=== PATIENT | female | born 2000 | race Two or more races ===

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

== ENCOUNTER 2018-07-11 16:11 | Emergency (ER) | payer OTHER ==
[~2018-07-11] VITALS: Ht 149.9 cm; Wt 67.2 kg
[2018-07-11 16:58] LABS: BILIRUBIN,URINE SMALL (NEG); CLARITY,URINE CLEAR; COLOR,URINE YELLOW; NITRITE,URINE NEGATIVE (NEG); PH,URINE 5.5; PROTEIN,URINE NEGATIVE (NEG-TRACE); UROBILINOGEN,URINE 0.2 mg/dL (0.2 mg/dL)
[2018-07-11 17:05] LABS: SQUAMOUS EPITHELIAL CELL,UR MANY /LPF
[2018-07-11 17:07] LABS: BACTERIA,URINE 0 /HPF (0-FEW)
[2018-07-11 17:27] LABS: BASO % 0 % (0-3); EOS # 0.1 x10^3/uL (0.0-0.7); EOS % 1 % (0-3); HEMATOCRIT 37.1 % (36.0-47.0); HEMOGLOBIN 12.3 g/dL (12.0-15.5); LYMPH # 2.1 x10^3/uL (1.0-4.8); LYMPH % 26 % (24-48); MEAN CORPUSCULAR HEMOGLOBIN 27 pg (25-35); MEAN CORPUSCULAR HGB CONC 33 g/dL (31-37); MEAN CORPUSCULAR VOLUME 80 fL (79-100); MONO # 0.5 x10^3/uL (0.0-1.1); MONO % 6 % (0-9); NEUT # 5.5 x10^3uL (1.8-7.7); NEUT % 67 % (31-73); PLATELET COUNT 361 x10^3/uL (140-400); RED BLOOD COUNT 4.63 x10^6/uL (3.50-5.40); RED CELL DISTRIBUTION WIDTH 12.8 % (11.5-14.5); WHITE BLOOD COUNT 8.2 x10^3/uL (4.0-11.0)
[2018-07-11 17:42] LABS: CALCIUM 9.3 mg/dL (8.5-10.1); CREATININE 0.7 mg/dL (0.6-1.0); GFR 107.8; POTASSIUM 3.6 mmol/L (3.5-5.1)
[2018-07-11 17:47] LABS: ALBUMIN 4.1 g/dL (3.4-5.0); ALBUMIN/GLOBULIN RATIO 1.1 (1.0-1.7); TOTAL BILIRUBIN 0.8 mg/dL (0.2-1.0)
--- NOTE | 2018-07-11 17:56 | PHYS DOC ---
Past Medical History Past Medical History: Other Additional Past Medical Histor: OVARIAN CYSTS (TAVON LOPEZ APRN) Past Surgical History: No Surgical History (TAVON LOPEZ APRN) Alcohol Use: Occasionally Drug Use: None (TAVON LOPEZ APRN) Adult General Chief Complaint Chief Complaint: VAGINAL BLEEDING HPI HPI Patient is a 17 year old female with history of ovarian cyst who presented to the ED today complaining of vaginal bleeding that began yesterday. Patient states she's not had a menstrual cycle for the last 2 years. She is not on any control. She states she's been checked out by the UPSET OPERATOR and was told her periods are irregular. Denies any chance she is . She is complaining of mild abdominal cramping. Patient denies anything exacerbating or relieving abdominal cramping. (TAVON LOPEZ APRN) Review of Systems Review of Systems You Constitutional: Denies fever or chills [] Eyes: Denies change in visual acuity, redness, or eye pain [] HENT: Denies nasal congestion or sore throat [] Respiratory: Denies cough or shortness of breath [] Cardiovascular: No additional information not addressed in HPI [] GI: Reports abdominal cramping. Denies abdominal pain, nausea, vomiting, bloody stools or diarrhea [] : Reports vaginal bleeding. Denies dysuria or hematuria [] Musculoskeletal: Denies back pain or joint pain [] Integument: Denies rash or skin lesions [] Neurologic: Denies headache, focal weakness or sensory changes [] All other systems were reviewed and found to be within normal limits, except as documented in this note. (TAVON LOPEZ APRN) Physical Exam Physical Exam Constitutional: Well developed, well nourished, no acute distress, non-toxic appearance. [] HENT: Normocephalic, atraumatic, bilateral external ears normal, oropharynx moist, no oral exudates, nose normal. [] Eyes: PERRLA, EOMI, conjunctiva normal, no discharge. [] Neck: Normal range of motion, no tenderness, supple, no stridor. [] Cardiovascular:Heart rate regular rhythm, no murmur [] Lungs & Thorax: Bilateral breath sounds clear to auscultation [] Abdomen: Bowel sounds normal, soft, no tenderness, no masses, no pulsatile masses. [] Pelvic exam External pelvic is normal, cervix is closed, no CMT, no adnexal tenderness, trace amount of bright red blood in the vaginal vault. Skin: Warm, dry, no erythema, no rash. [] Back: No tenderness, no CVA tenderness. [] Extremities: No tenderness, no cyanosis, no clubbing, ROM intact, no edema. [] Neurologic: Alert and oriented X 3, normal motor function, normal sensory function, no focal deficits noted. [] Psychologic: Affect normal, judgement normal, mood normal. [] (TAVON LOPEZ APRN) Current Patient Data Vital Signs Vital Signs Date Time Temp Pulse Resp B/P (MAP) Pulse Ox O2 Delivery O2 Flow Rate FiO2 07/11/18 18:16 16 95/57 (70) 98 Room Air 07/11/18 17:46 72 07/11/18 16:45 98.1 98.1 (MARTINZARIA PEÑA DO) Lab Values Laboratory Tests Test 07/11/18 16:40 07/11/18 16:51 07/11/18 17:23 Urine Collection Type Unknown Urine Color Yellow Urine Clarity Clear Urine pH 5.5 Urine Specific [place] >=1.030 Urine Protein Negative mg/dL (NEG-TRACE) Urine Glucose (UA) Negative mg/dL (NEG) Urine Ketones (Stick) Trace mg/dL (NEG) Urine Blood Large (NEG) Urine Nitrite Negative (NEG) Urine Bilirubin Small (NEG) Urine Urobilinogen Dipstick 0.2 mg/dL (0.2 mg/dL) Urine Leukocyte Esterase Negative (NEG) Urine RBC 3-5 /HPF (0-2) Urine WBC 1-4 /HPF (0-4) Urine Squamous Epithelial Cells Many /LPF Urine Bacteria 0 /HPF (0-FEW) Urine Mucus Marked /LPF POC Urine HCG, Qualitative Hcg negative (Negative) White Blood Count 8.2 x10^3/uL (4.0-11.0) Red Blood Count 4.63 x10^6/uL (3.50-5.40) Hemoglobin 12.3 g/dL (12.0-15.5) Hematocrit 37.1 % (36.0-47.0) Mean Corpuscular Volume 80 fL (79-100) Mean Corpuscular Hemoglobin 27 pg (25-35) Mean Corpuscular Hemoglobin Concent 33 g/dL (31-37) Red Cell Distribution Width 12.8 % (11.5-14.5) Platelet Count 361 x10^3/uL (140-400) Neutrophils (%) (Auto) 67 % (31-73) Lymphocytes (%) (Auto) 26 % (24-48) Monocytes (%) (Auto) 6 % (0-9) Eosinophils (%) (Auto) 1 % (0-3) Basophils (%) (Auto) 0 % (0-3) Neutrophils # (Auto) 5.5 x10^3uL (1.8-7.7) Lymphocytes # (Auto) 2.1 x10^3/uL (1.0-4.8) Monocytes # (Auto) 0.5 x10^3/uL (0.0-1.1) Eosinophils # (Auto) 0.1 x10^3/uL (0.0-0.7) Basophils # (Auto) 0.0 x10^3/uL (0.0-0.2) Sodium Level 141 mmol/L (136-145) Potassium Level 3.6 mmol/L (3.5-5.1) Chloride Level 102 mmol/L (98-107) Carbon Dioxide Level 27 mmol/L (21-32) Anion Gap 12 (6-14) Blood Urea Nitrogen 14 mg/dL (7-20) Creatinine 0.7 mg/dL (0.6-1.0) Estimated GFR (Cockcroft-Gault) 107.8 BUN/Creatinine Ratio 20 (6-20) Glucose Level 124 mg/dL (70-99) H Calcium Level 9.3 mg/dL (8.5-10.1) Total Bilirubin 0.8 mg/dL (0.2-1.0) Aspartate Amino Transferase (AST) 149 U/L (15-37) H Alanine Aminotransferase (ALT) 49 U/L (14-59) Alkaline Phosphatase 109 U/L (46-116) Total Protein 8.0 g/dL (6.4-8.2) Albumin 4.1 g/dL (3.4-5.0) Albumin/Globulin Ratio 1.1 (1.0-1.7) Laboratory Tests 07/11/18 17:23 Laboratory Tests 07/11/18 17:23 Microbiology 07/11/18 Wet Prep - Final, Complete (ZARIA MARTIN DO) EKG EKG [] (TAVON LOPEZ APRN) Radiology/Procedures Radiology/Procedures [] (TAVON LOPEZ APRN) Radiology/Procedures PROCEDURE: PELVIS W/TV Pelvic ultrasound with transvaginal: Reason for examination: Dysmenorrhea with heavy bleeding for 2 days, Mirena for 2 years with no cycles for 2 years. History of ovarian cyst. Transabdominally, the uterus is retroverted. IUD is in place. No gross abnormalities are seen at the right or left ovary. The right ovary measures 2.6 x 1.8 x 2.4 cm in greatest dimension. The left ovary measures 2.6 x 1.8 x 2.3 cm in greatest dimension. Transvaginally, the endometrium is not abnormally thickened at 3.2 mm. A focal uterine mass is not seen. The uterus appears to measure approximately 8.0 cm in length, 3.2 cm in height and 5.1 cm in width. The ovaries show presence of multiple follicles but normal vascular flow. The right ovary appears to measure 3.7 cm in greatest dimension transvaginally. The left ovary appears to measure 4.2 cm in greatest dimension transvaginally. No free fluid or adnexal masses are seen. IMPRESSION: Retroverted uterus with no masses or abnormal thickening of the endometrium. IUD present in the endometrial cavity. Prominent ovaries bilaterally with multiple follicles present bilaterally. Electronically signed by: Shereen Worthington MD (07/11/2018 7:28 PM) [facility] (ZARIA MARTIN DO) Course & Med Decision Making Course & Med Decision Making Pertinent Labs and Imaging studies reviewed. (See chart for details) This is a 17-year-old female patient presenting to the ED today with vaginal bleeding that began yesterday. Patient has not had a menstrual cycle for 2 years though her periods are very irregular. On pelvic exam she had trace amount of bright red blood in the vaginal vault. Negative urine hCG, wet prep is negative. CBC with a normal hemoglobin and hematocrit, WBCs normal. CMP with AST of 149 no RUQ pain, no hx of ETOH, unknown of she took Tylenol for pain and denies being on statins, will f/u with PCP for this. Preliminary pelvis ultrasound noted for ovarian follicles, IUD in satisfactory position otherwise no acute findings. D/C to home. F/u with her OBGYN in 1 week. Provided return precautions. (TAVON LOPEZ APRN) Dragon Disclaimer Dragon Disclaimer This electronic medical record was generated, in whole or in part, using a voice recognition dictation system. (TAVON LOPEZ APRN) Departure Departure Impression: Primary Impression: Dysfunctional uterine bleeding Disposition: HOME, SELF-CARE Condition: STABLE Referrals: CHEO SHANE MD (PCP) Patient Instructions: Uterine Bleeding, Dysfunctional, [id number] Additional Instructions: You were seen for dysfunction uterine bleeding. This is not unusual on women with IUD. Please follow up with your OBGYN. Please return to the ED if symptoms worsen. Attending Signature Attending Signature I have personally interviewed and examined the patient. All charts, labs, and imaging studies were reviewed. I agree with the PA/LE[employer] NETWORK ARCHITECT's findings, exam, and plan. (ZARIA MARTIN DO) TAVON LOPEZ APRN Jul 11, 2018 17:56 ZARIA MARTIN DO Jul 12, 2018 00:20
[2018-07-11 18:16] VITALS: BP 95/57
--- NOTE | 2018-07-11 19:30 | RAD ---
Pelvic ultrasound with transvaginal: Reason for examination: Dysmenorrhea with heavy bleeding for 2 days, Mirena for 2 years with no cycles for 2 years. History of ovarian cyst. Transabdominally, the uterus is retroverted. IUD is in place. No gross abnormalities are seen at the right or left ovary. The right ovary measures 2.6 x 1.8 x 2.4 cm in greatest dimension. The left ovary measures 2.6 x 1.8 x 2.3 cm in greatest dimension. Transvaginally, the endometrium is not abnormally thickened at 3.2 mm. A focal uterine mass is not seen. The uterus appears to measure approximately 8.0 cm in length, 3.2 cm in height and 5.1 cm in width. The ovaries show presence of multiple follicles but normal vascular flow. The right ovary appears to measure 3.7 cm in greatest dimension transvaginally. The left ovary appears to measure 4.2 cm in greatest dimension transvaginally. No free fluid or adnexal masses are seen. IMPRESSION: Retroverted uterus with no masses or abnormal thickening of the endometrium. IUD present in the endometrial cavity. Prominent ovaries bilaterally with multiple follicles present bilaterally. Electronically signed by: Shereen Worthington MD (07/11/2018 7:28 PM) [facility]
[2018-07-12 21:09] LABS: GC PROBE Negative (Negative)
== END 2018-07-11 19:00 | disposition home or self-care (01) ==
LOC: ER 16:11
DX: N93.8 Other specified abnormal uterine and vaginal bleeding (principal); N85.4 Malposition of uterus
CPT/HCPCS: 36415; 76830; 76856; 80053; 81001; 81025; 85025; 87491; 87591; 99285; Q0111; 96372; 99284

== ENCOUNTER 2019-06-03 21:36 | Emergency (ER) | payer OTHER ==
[~2019-06-03] VITALS: Ht 149.9 cm; Wt 63.6 kg
[2019-06-03 22:29] LABS: BILIRUBIN,URINE NEGATIVE (NEG); CLARITY,URINE CLOUDY; COLOR,URINE YELLOW; NITRITE,URINE NEGATIVE (NEG); PH,URINE 5.5 (<5.0-8.0); PROTEIN,URINE NEGATIVE (NEG-TRACE); UROBILINOGEN,URINE 0.2 mg/dL (0.2 mg/dL)
[2019-06-03 22:38] LABS: BACTERIA,URINE MANY /HPF (0-FEW); RBC,URINE OCC /HPF (0-2); SQUAMOUS EPITHELIAL CELL,UR MANY /LPF
[2019-06-03] MEDS: ONDANSETRON PF 4 MG/2 ML VIAL. IVP ONE (22:44)
[2019-06-03] MEDS: FAMOTIDINE 20 MG/2 ML VIAL IVP ONE (22:44)
[2019-06-03] MEDS: IV NORMAL SALINE 1000ML BAG 1,000 ML IV SCH (22:44)
--- NOTE | 2019-06-03 22:45 | PHYS DOC ---
Past Medical History Past Medical History: Other Additional Past Medical Histor: OVARIAN CYSTS Past Surgical History: No Surgical History Smoking Status: Never Smoker Alcohol Use: Occasionally Drug Use: None Adult General Chief Complaint Chief Complaint: ABDOMINAL PAIN [facility] HPI 18-year-old female presents with a chief complaint of abdominal pain associated with nausea vomiting and diarrhea. Patient states she ate Rotella for lunch and shortly after symptoms presented. Abdominal pain is epigastric. Patient states she has had multiple episodes of vomiting-- one episode appeared have blood. Patient has also had tubal episodes of diarrhea-- no blood was noticed. Review of Systems Review of Systems Constitutional: Denies fever or chills [] Eyes: Denies change in visual acuity, redness, or eye pain [] HENT: Denies nasal congestion or sore throat [] Respiratory: Denies cough or shortness of breath [] Cardiovascular: No additional information not addressed in HPI [] GI: Positive abdominal pain positive nausea positive vomiting positive diarrhea : Denies dysuria or hematuria [] Musculoskeletal: Denies back pain or joint pain [] Integument: Denies rash or skin lesions [] Neurologic: Denies headache, focal weakness or sensory changes [] Endocrine: Denies polyuria or polydipsia [] All other systems were reviewed and found to be within normal limits, except as documented in this note. Current Medications Current Medications Current Medications Medications (Trade) Dose Ordered Sig/Isa Start Time Stop Time Status Last Admin Dose Admin Famotidine (Pepcid Vial) 20 mg 1X ONCE 06/03/19 22:30 06/03/19 22:31 DC 06/03/19 22:44 20 MG Ondansetron HCl (Zofran) 4 mg 1X ONCE 06/03/19 22:30 06/03/19 22:31 DC 06/03/19 22:44 4 MG Sodium Chloride 1,000 ml @ 1,000 mls/hr Q1H 06/03/19 22:30 06/03/19 23:29 DC 06/03/19 22:44 1,000 MLS/HR Allergies Allergies Allergies Coded Allergies Type Severity Reaction Last Updated Verified No Known Drug Allergies 06/03/19 No Physical Exam Physical Exam Constitutional: Well developed, well nourished, no acute distress, non-toxic appearance. [] HENT: Normocephalic, atraumatic, bilateral external ears normal, oropharynx moist, no oral exudates, nose normal. [] Eyes: PERRLA, EOMI, conjunctiva normal, no discharge. [] Neck: Normal range of motion, no tenderness, supple, no stridor. [] Cardiovascular:Heart rate regular rhythm, no murmur [] Lungs & Thorax: Bilateral breath sounds clear to auscultation [] Abdomen: Bowel sounds normal, soft, no tenderness, no masses, no pulsatile masses. [] Skin: Warm, dry, no erythema, no rash. [] Back: No tenderness, no CVA tenderness. [] Extremities: No tenderness, no cyanosis, no clubbing, ROM intact, no edema. [] Neurologic: Alert and oriented X 3, normal motor function, normal sensory function, no focal deficits noted. [] Psychologic: Affect normal, judgement normal, mood normal. [] Current Patient Data Vital Signs Vital Signs Date Time Temp Pulse Resp B/P (MAP) Pulse Ox O2 Delivery O2 Flow Rate FiO2 06/03/19 23:36 68 24 101/56 (71) 98 Room Air 06/03/19 21:57 98.4 98.4 Lab Values Laboratory Tests Test 06/03/19 21:58 06/03/19 22:02 06/03/19 22:35 Urine Collection Type Unknown Urine Color Yellow Urine Clarity Cloudy Urine pH 5.5 (<5.0-8.0) Urine Specific [place] 1.025 (1.000-1.030) Urine Protein Negative mg/dL (NEG-TRACE) Urine Glucose (UA) Negative mg/dL (NEG) Urine Ketones (Stick) Negative mg/dL (NEG) Urine Blood Small (NEG) Urine Nitrite Negative (NEG) Urine Bilirubin Negative (NEG) Urine Urobilinogen Dipstick 0.2 mg/dL (0.2 mg/dL) Urine Leukocyte Esterase Small (NEG) Urine RBC Occ /HPF (0-2) Urine WBC 1-4 /HPF (0-4) Urine Squamous Epithelial Cells Many /LPF Urine Bacteria Many /HPF (0-FEW) Urine Mucus Marked /LPF POC Urine HCG, Qualitative Hcg negative (Negative) White Blood Count 9.7 x10^3/uL (4.0-11.0) Red Blood Count 4.55 x10^6/uL (3.50-5.40) Hemoglobin 12.7 g/dL (12.0-15.5) Hematocrit 37.0 % (36.0-47.0) Mean Corpuscular Volume 81 fL (79-100) Mean Corpuscular Hemoglobin 28 pg (25-35) Mean Corpuscular Hemoglobin Concent 34 g/dL (31-37) Red Cell Distribution Width 13.0 % (11.5-14.5) Platelet Count 322 x10^3/uL (140-400) Neutrophils (%) (Auto) 87 % (31-73) H Lymphocytes (%) (Auto) 9 % (24-48) L Monocytes (%) (Auto) 4 % (0-9) Eosinophils (%) (Auto) 0 % (0-3) Basophils (%) (Auto) 0 % (0-3) Neutrophils # (Auto) 8.5 x10^3/uL (1.8-7.7) H Lymphocytes # (Auto) 0.9 x10^3/uL (1.0-4.8) L Monocytes # (Auto) 0.3 x10^3/uL (0.0-1.1) Eosinophils # (Auto) 0.0 x10^3/uL (0.0-0.7) Basophils # (Auto) 0.0 x10^3/uL (0.0-0.2) Segmented Neutrophils % 87 % (35-66) H Lymphocytes % 10 % (24-48) L Monocytes % 3 % (0-10) Toxic Granulation Slight Platelet Estimate Adequate (ADEQUATE) Sodium Level 138 mmol/L (136-145) Potassium Level 3.9 mmol/L (3.5-5.1) Chloride Level 104 mmol/L (98-107) Carbon Dioxide Level 26 mmol/L (21-32) Anion Gap 8 (6-14) Blood Urea Nitrogen 10 mg/dL (7-20) Creatinine 0.7 mg/dL (0.6-1.0) Estimated GFR (Cockcroft-Gault) 106.7 BUN/Creatinine Ratio 14 (6-20) Glucose Level 105 mg/dL (70-99) H Calcium Level 9.0 mg/dL (8.5-10.1) Total Bilirubin 0.7 mg/dL (0.2-1.0) Aspartate Amino Transferase (AST) 31 U/L (15-37) Alanine Aminotransferase (ALT) 40 U/L (14-59) Alkaline Phosphatase 102 U/L (46-116) Total Protein 7.6 g/dL (6.4-8.2) Albumin 3.9 g/dL (3.4-5.0) Albumin/Globulin Ratio 1.1 (1.0-1.7) Lipase 95 U/L (73-393) Serum Test, Qualitative Negative (NEG) Laboratory Tests 06/03/19 22:35 Laboratory Tests 06/03/19 22:35 EKG EKG [] Radiology/Procedures Radiology/Procedures [] Course & Med Decision Making Course & Med Decision Making Pertinent Labs and Imaging studies reviewed. (See chart for details) []Results reviewed and discussed with patient. Labs without acute abnormalities. Urine small leukocyte esterases 1-4 WBCs but with many squamous cells. Symptoms improved posttreatment. Patient will be discharged home with instruction to follow up with her primary care physician. Mickion Disclaimer Dragon Disclaimer This electronic medical record was generated, in whole or in part, using a voice recognition dictation system. Departure Departure Impression: Primary Impression: Gastroenteritis Disposition: 01 HOME, SELF-CARE Condition: STABLE Referrals: NO PCP (PCP) Scripts Famotidine (PEPCID) 20 Mg Tablet 20 MG PO HS for 10 Days, #10 TAB Prov: LEONIE MULLER I DO 06/03/19 Ondansetron Hcl (ZOFRAN) 4 Mg Tablet 1 TAB PO Q6HRS, #20 TAB Prov: LEONIE MULLER I DO 06/03/19 LEONIE MULLER I DO Jun 03, 2019 22:45
[2019-06-03 22:47] LABS: BASO % 0 % (0-3); EOS % 0 % (0-3); HEMOGLOBIN 12.7 g/dL (12.0-15.5); LYMPH # 0.9 x10^3/uL (1.0-4.8); LYMPH % 9 % (24-48); MEAN CORPUSCULAR HEMOGLOBIN 28 pg (25-35); MEAN CORPUSCULAR HGB CONC 34 g/dL (31-37); MEAN CORPUSCULAR VOLUME 81 fL (79-100); MONO # 0.3 x10^3/uL (0.0-1.1); MONO % 4 % (0-9); NEUT # 8.5 x10^3/uL (1.8-7.7); NEUT % 87 % (31-73); PLATELET COUNT 322 x10^3/uL (140-400); RED BLOOD COUNT 4.55 x10^6/uL (3.50-5.40); WHITE BLOOD COUNT 9.7 x10^3/uL (4.0-11.0)
[2019-06-03 22:55] LABS: CREATININE 0.7 mg/dL (0.6-1.0); GFR 106.7; POTASSIUM 3.9 mmol/L (3.5-5.1)
[2019-06-03 22:58] LABS: PREG TEST PT QUAL NEGATIVE (NEG)
[2019-06-03 23:00] LABS: ALBUMIN 3.9 g/dL (3.4-5.0); ALBUMIN/GLOBULIN RATIO 1.1 (1.0-1.7); TOTAL BILIRUBIN 0.7 mg/dL (0.2-1.0); TOTAL PROTEIN 7.6 g/dL (6.4-8.2)
[2019-06-03 23:02] LABS: % LYMPHS 10 % (24-48); % MONOS 3 % (0-10); % SEGS 87 % (35-66)
[2019-06-03 23:04] LABS: PLT ESTIMATE ADEQUATE (ADEQUATE); TOXIC GRANULATION SLIGHT
[2019-06-03] MEDS ORDERED: FAMO-63 PO (23:32)
[2019-06-03] MEDS ORDERED: ONDA4TAB7 PO (23:32)
[2019-06-03 23:36] VITALS: BP 101/56
== END 2019-06-03 23:42 | disposition home or self-care (01) ==
LOC: ER 21:36
DX: K52.9 Noninfective gastroenteritis and colitis, unspecified (principal)
CPT/HCPCS: 36415; 80053; 81001; 81025; 83690; 84703; 85007; 85025; 87086; 96361; 96374; 96375; 99285; J2405; J3490; J7030; 96360; 99283